=== PATIENT | male | born 1980 | race Caucasian/White ===

== ENCOUNTER 2022-05-22 08:02 | Emergency (ER) | payer BC, SELFPAY ==
[2022-05-22 08:17] VITALS: BP 136/92; PULSE 82; RESP 16; TEMP 36.4; O2SAT 100
--- NOTE | 2022-05-22 08:31 | ED.SKABFB ---
HPI - Skin/Abscess/Foreign Bdy General Chief complaint: Skin/Abscess/Foreign Body Stated complaint: Rash Time Seen by Provider: 05/22/22 08:23 Source: patient Mode of arrival: ambulatory Limitations: no limitations History of Present Illness HPI narrative: Patient presents today complaining of severely pruritic rash covering his entire body. Rash appeared yesterday and worsened last night while he was at work. Patient works overnights doing construction. He has not tried any [id number] treatment prior to arrival. Denies shortness of breath, difficulty swallowing, or any additional symptoms. Denies any new household products, soaps, shampoos, new food, or animal contacts, or new medications. Related Data Allergies Allergy/AdvReac Type Severity Reaction Status Date / Time Penicillins Allergy Rash Verified 05/22/22 08:24 Review of Systems Review of Systems: CONSTITUTIONAL: Denies body aches, fever, chills, or sweats. EYES: Denies visual changes, redness, or discharge. ENT: Denies rhinorrhea, congestion, sore throat, or otalgia. CARDIOVASCULAR: Denies chest pain, palpitations, or edema. RESPIRATORY: Denies cough or dyspnea. GASTROINTESTINAL: Denies abdominal pain, nausea, vomiting, or diarrhea. GENITOURINARY: Denies dysuria or hematuria. SKIN: Denies wounds.+ Pruritic rash MUSCULOSKELETAL: Denies back pain, joint pain, or myalgia. NEUROLOGIC: Denies headache, numbness, tingling, or weakness. PSYCH: Denies depression or anxiety. PMFSH Comments At time of signature, I have reviewed and agree with nursing past medical, surgical, social and family history unless otherwise noted. Please see nursing chart for further information. There is no relevant family history pertinent to the presenting complaint Exam Narrative: GENERAL: Well-appearing, well-nourished, and in no acute distress. HEAD: Normocephalic, atraumatic. EYES: EOMI. No redness or drainage. Conjunctivae normal. ENT: Mucous membranes pink and moist. NECK: Normal AROM. CHEST: No respiratory distress. EXTREMITIES: Normal range of motion. No edema. SKIN: Warm, dry. Capillary refill normal. Normal skin turgor. Mildly erythematous diffuse maculopapular rash over the trunk and all 4 extremities. NEURO: No focal deficits. Alert and oriented x3. Gait steady. PSYCH: Normal affect. No signs of depression or anxiety. Course Course Level of Care: Express Care Visit Vital Signs Vital signs: Vital Signs Temperature 97.6 F 05/22/22 08:17 Pulse Rate 82 05/22/22 08:17 Respiratory Rate 16 05/22/22 08:17 Blood Pressure 136/92 H 05/22/22 08:17 Pulse Oximetry 100 05/22/22 08:17 Oxygen Delivery Room Air 05/22/22 08:17 Temperature 97.6 F 05/22/22 08:17 Pulse Rate 82 05/22/22 08:17 Respiratory Rate 16 05/22/22 08:17 Blood Pressure 136/92 H 05/22/22 08:17 Pulse Oximetry 100 05/22/22 08:17 Oxygen Delivery Room Air 05/22/22 08:17 Reviewed. Pt has been instructed to follow up with his PCP regarding his elevated blood pressure today. MDM - Skin/Abscess/Foreign Bdy Differential Diagnosis Differential diagnosis: Likely viral exanthem, urticaria, eczema, insect bites, impetigo and contact dermatitis Critical Care Time Critical Care Time Critical Care Time: No Discharge Plan Discharge Clinical Impression: Contact dermatitis Qualifiers: Contact dermatitis type: unspecified Contact dermatitis trigger: unspecified trigger Qualified Code(s): L25.9 - Unspecified contact dermatitis, unspecified cause Patient Disposition: Home, Self-Care Condition: Stable Instructions: Contact Dermatitis (DC) Additional Instructions: Please take the prednisone as prescribed. Before you go to bed, take some Benadryl to help with your itching. During the day while you are working, take a daily antihistamine such as Zyrtec, Claritin, or Joyce. You may use a topical medication such as calamine lotion for the itchy as parts if you wish
== END 2022-05-22 08:41 | disposition home or self-care (01) ==
PROVIDERS: Emergency Provider Nurse Practitioner
DX: L25.9 Unspecified contact dermatitis, unspecified cause (principal)
CPT/HCPCS: 99203; G0463